=== PATIENT | male | born 1990 | race Caucasian/White ===

== ENCOUNTER 2017-05-02 09:29 | Emergency (ER) | payer SELFPAY ==
[2017-05-02] MEDS ORDERED: Benzocaine 20% Topical Spray UD MUCMEM ONE (10:05)
[2017-05-02] MEDS ORDERED: Lidocaine 2% Viscous Solution 15 ML Cup PO ONE (10:05)
--- NOTE | 2017-05-02 10:08 | EDM.PDOC ---
ED HPI GENERAL MEDICAL PROBLEM - General Chief Complaint: General Stated Complaint: TOOTH PAIN Time Seen by Provider: 05/02/17 10:05 Source of Information: Reports: Patient History Limitations: Reports: No Limitations - History of Present Illness INITIAL COMMENTS - FREE TEXT/NARRATIVE: HISTORY AND PHYSICAL: History of present illness: Patient is a 27-year-old male who presents to the emergency room with complaints of dental pain and facial swelling 2 days. He states he has a long- standing history of tobacoo use which he treats to his poor dental health. He states he was eating and he felt pain to his right posterior lower molar and had swelling. Has been using Tylenol and Motrin and has not found any relief. He states he is unable to get into a dentist "until I get the swelling down". He is here today requesting antibiotics and pain management. Review of systems: As per history of present illness and below otherwise all systems reviewed and negative. Past medical history: As per history of present illness and as reviewed below otherwise noncontributory. Surgical history: As per history of present illness and as reviewed below otherwise noncontributory. Social history: No reported history of drug or alcohol abuse. Family history: As per history of present illness and as reviewed below otherwise noncontributory. Physical exam: Gen.: Well-developed and well-nourished 27-year-old male. Alert and oriented. Nontoxic appearing and in no acute distress. HEENT: Atraumatic, normocephalic, pupils reactive, negative for conjunctival pallor or scleral icterus, mucous membranes moist, throat clear with no pillar shifting, neck supple, nontender, trachea midline. #30-32 appear decayed, gumline has erythema and mild swelling. Swelling is noted to the right lower jawline and does not extend into the neck. No drooling or trismus. Lungs: Clear to auscultation, breath sounds equal bilaterally, chest nontender. Heart: S1S2, regular, negative for clicks, rubs, or JVD. Abdomen: Soft, nondistended, nontender. Negative for masses or hepatosplenomegaly. Negative for costovertebral tenderness. Pelvis: Stable nontender. Genitourinary: Deferred. Rectal: Deferred. Extremities: Atraumatic, negative for cords or calf pain. Neurovascular unremarkable. Neuro: Awake, alert, oriented. Cranial nerves II through XII unremarkable. Cerebellum unremarkable. Motor and sensory unremarkable throughout. Exam nonfocal. Diagnostics: [] Therapeutics: Viscous lidocaine, Hurricaine spray Impression: Dental abscess Plan: 1. Please take your antibiotic as prescribed. Use your dental balls that have been given to you. Tramadol for night time use. Please use ibuprofen to help with the swelling for the next couple days. Take this medication with food. 2. Follow-up with your local dentist for definitive care. Return to the ED as needed and as discussed. Definitive disposition and diagnosis as appropriate pending reevaluation and review of above. Duration: Day(s): Location: Reports: Face Right Lower Oral/Mouth Pain Score (Numeric/FACES): 10 - Related Data Allergies Allergy/AdvReac Type Severity Reaction Status Date / Time No Known Allergies Allergy Verified 05/02/17 10:06 Home Meds: Home Meds . [No Known Home Meds] 03/27/14 [History] Past Medical History - Past Health History Medical/Surgical History: Denies Medical/Surgical History HEENT History: Reports: None Cardiovascular History: Reports: None Respiratory History: Reports: None Gastrointestinal History: Reports: None Genitourinary History: Reports: None Musculoskeletal History: Reports: None Neurological History: Reports: Head Trauma Psychiatric History: Reports: Anxiety Endocrine/Metabolic History: Reports: None Hematologic History: Reports: None Immunologic History: Reports: None Oncologic (Cancer) History: Reports: None Dermatologic History: Reports: None - Past Surgical History GI Surgical History: Reports: Hernia, Inguinal Social & Family History - Tobacco Use Smoking Status *Q: Current Every Day Smoker Years of Tobacco use: 5 Packs/Tins Daily: 0.5 - Alcohol Use Days Per Week of Alcohol Use: 0 Number of Drinks Per Day: 2 Total Drinks Per Week: 0 - Recreational Drug Use Recreational Drug Use: No ED ROS GENERAL - Review of Systems Review Of Systems: ROS reveals no pertinent complaints other than HPI. ED EXAM, GENERAL - Physical Exam Exam: See Below (See dictation) Course - Vital Signs Last Recorded V/S: Last Vital Signs Temp 98.7 F 05/02/17 10:03 Pulse 121 H 05/02/17 10:03 Resp 20 05/02/17 10:03 BP 131/81 05/02/17 10:03 Pulse Ox 98 05/02/17 10:03 - Orders/Labs/Meds Meds: Medications Discontinued Medications Generic Name Dose Route Start Last Admin Trade Name Rainer PRN Reason Stop Dose Admin Benzocaine 2 each 05/02/17 10:05 05/02/17 10:18 Hurricaine One 20% MUCMEM 05/02/17 10:06 2 each ONETIME ONE Administration Lidocaine HCl 15 ml 05/02/17 10:05 05/02/17 10:18 Xylocaine 2% Viscous PO 05/02/17 10:06 15 ml ONETIME ONE Administration Departure - Departure Time of Disposition: 10:35 Disposition: Home, Self-Care 01 Clinical Impression: Dental abscess - Discharge Information Referrals: PCP,None [Primary Care Provider] - Forms: ED Department Discharge Additional Instructions: My general discharge The following information is given to patients seen in the emergency department who are being discharged to home. This information is to outline your options for follow-up care. We provide all patients seen in our emergency department with a follow-up referral. The need for follow-up, as well as the timing and circumstances, are variable depending upon the specifics of your emergency department visit. If you don't have a primary care physician on staff, we will provide you with a referral. We always advise you to contact your personal physician following an emergency department visit to inform them of the circumstance of the visit and for follow-up with them and/or the need for any referrals to a consulting specialist. The emergency department will also refer you to a specialist when appropriate. This referral assures that you have the opportunity for follow-up care with a specialist. All of these measure are taken in an effort to provide you with optimal care, which includes your follow-up. Under all circumstances we always encourage you to contact your private physician who remains a resource for coordinating your care. When calling for follow-up care, please make the office aware that this follow-up is from your recent emergency room visit. If for any reason you are refused follow-up, please contact the [facility] Emergency Department at and asked to speak to the emergency department charge nurse. [facility] [address] [place] [id number] 1. Please stop all tobacco use. Take your antibiotic as prescribed. Use your dental balls that have been given to you. Tramadol for night time use. Please use ibuprofen to help with the swelling for the next couple days. Take this medication with food. 2. Follow-up with your local dentist for definitive care this week. Return to the ED as needed and as discussed.
[2017-05-02 11:14] VITALS: BP 130/78
== END 2017-05-02 10:44 | disposition home or self-care (01) ==
LOC: MW.ED 09:29
DX: K04.7 Periapical abscess without sinus (principal); F17.210 Nicotine dependence, cigarettes, uncomplicated
CPT/HCPCS: 99282; A9270

== ENCOUNTER 2017-05-07 12:23 | Emergency (ER) | payer SELFPAY ==
[2017-05-07] MEDS ORDERED: Benzocaine 20% Topical Spray UD MUCMEM ONE (12:37)
[2017-05-07] MEDS ORDERED: Lidocaine 2% Viscous Solution 15 ML Cup PO ONE (12:37)
--- NOTE | 2017-05-07 12:37 | EDM.PDOC ---
ED HPI GENERAL MEDICAL PROBLEM - General Chief Complaint: ENT Problem Stated Complaint: ORAL PAIN AND SWELLING Time Seen by Provider: 05/07/17 12:24 Source of Information: Reports: Patient History Limitations: Reports: No Limitations - History of Present Illness INITIAL COMMENTS - FREE TEXT/NARRATIVE: HISTORY AND PHYSICAL: History of present illness: Patient is a 27-year-old male who presents to the emergency room with dental pain. He was seen by myself on for the same complaint. At that time he was placed on amoxicillin and given tramadol for pain/discomfort. He states that he has been taking his medication regularly and has not improved. He feels that the swelling is the same and feels firm to touch. Denies any fever, chills, chest pain, shortness of breath, abdominal pain, nausea, vomiting or diarrhea. Review of systems: As per history of present illness and below otherwise all systems reviewed and negative. Past medical history: As per history of present illness and as reviewed below otherwise noncontributory. Surgical history: As per history of present illness and as reviewed below otherwise noncontributory. Social history: No reported history of drug or alcohol abuse. Family history: As per history of present illness and as reviewed below otherwise noncontributory. Physical exam: General: Well-developed and well-nourished 27-year-old male. Alert and oriented. Appears nontoxic and in no acute distress. HEENT: Atraumatic, normocephalic, pupils reactive, negative for conjunctival pallor or scleral icterus, mucous membranes moist, throat clear, neck supple, swelling noted to the right posterior molar with tenderness with palpation, neck is nontender, trachea midline. Drooling or trismus. No meningeal signs. Lungs: Clear to auscultation, breath sounds equal bilaterally, chest nontender. Heart: S1S2, regular rate and rhythm Abdomen: Soft, nondistended, nontender. Negative for masses or hepatosplenomegaly. Negative for costovertebral tenderness. Pelvis: Stable nontender. Genitourinary: Deferred. Rectal: Deferred. Extremities: Atraumatic, negative for cords or calf pain. Neurovascular unremarkable. Neuro: Awake, alert, oriented. Cranial nerves II through XII unremarkable. Cerebellum unremarkable. Motor and sensory unremarkable throughout. Exam nonfocal. Ears soft tissue swelling noted to the right lower jawline. Upon entering the room the patient is asleep on the chair and appears in no acute distress. I will give the patient some dental balls and a shot of Rocephin while he is here. Had him stop the amoxicillin and prescribed clindamycin every 6 hours 7 days. Formed him that he should ice the area and follow-up with a dentist. Diagnostics: [] Therapeutics: Rocephin Dental balls Impression: Dental abscess Plan: 1. Please stop the amoxicillin. Rocephin has been given to you here. Clindamycin has been prescribed to you. One tab every 6 hours x 7 days. 2. Dental balls have been offered to you. You may continue to do the tramadol as needed. PLEASE APPLY ICE TO THE SWOLLEN AREA. 3. For definitive care you do need to see a dentist. Return to the ED as needed and as discussed. Definitive disposition and diagnosis as appropriate pending reevaluation and review of above. Onset Date: 04/30/17 Duration: Day(s): Location: Reports: Face - Related Data Allergies Allergy/AdvReac Type Severity Reaction Status Date / Time No Known Allergies Allergy Verified 05/02/17 10:06 Home Meds: Home Meds . [No Known Home Meds] 03/27/14 [History] Past Medical History - Past Health History Medical/Surgical History: Denies Medical/Surgical History HEENT History: Reports: None Cardiovascular History: Reports: None Respiratory History: Reports: None Gastrointestinal History: Reports: None Genitourinary History: Reports: None Musculoskeletal History: Reports: None Neurological History: Reports: Head Trauma Psychiatric History: Reports: Anxiety Endocrine/Metabolic History: Reports: None Hematologic History: Reports: None Immunologic History: Reports: None Oncologic (Cancer) History: Reports: None Dermatologic History: Reports: None - Past Surgical History GI Surgical History: Reports: Hernia, Inguinal Social & Family History - Tobacco Use Smoking Status *Q: Current Every Day Smoker Years of Tobacco use: 5 Packs/Tins Daily: 0.5 - Caffeine Use Caffeine Use: Reports: Soda - Alcohol Use Days Per Week of Alcohol Use: 0 Number of Drinks Per Day: 2 Total Drinks Per Week: 0 - Recreational Drug Use Recreational Drug Use: No ED ROS ENT - Review of Systems Review Of Systems: ROS reveals no pertinent complaints other than HPI. ED EXAM, ENT - Physical Exam Exam: See Below (See dictation) Course - Vital Signs Last Recorded V/S: Last Vital Signs Temp 97.8 F 05/07/17 12:52 Pulse 94 05/07/17 12:52 Resp 18 05/07/17 12:52 BP 131/87 05/07/17 12:52 Pulse Ox 96 05/07/17 12:52 - Orders/Labs/Meds Meds: Medications Discontinued Medications Generic Name Dose Route Start Last Admin Trade Name Rainer PRN Reason Stop Dose Admin Benzocaine 2 each 05/07/17 12:37 Hurricaine One 20% MUCMEM 05/07/17 12:38 ONETIME ONE Lidocaine HCl 15 ml 05/07/17 12:37 Xylocaine 2% Viscous PO 05/07/17 12:38 ONETIME ONE Departure - Departure Time of Disposition: 13:11 Disposition: Home, Self-Care 01 Clinical Impression: Dental abscess - Discharge Information Referrals: PCP,None [Primary Care Provider] - Forms: ED Department Discharge Additional Instructions: My general discharge The following information is given to patients seen in the emergency department who are being discharged to home. This information is to outline your options for follow-up care. We provide all patients seen in our emergency department with a follow-up referral. The need for follow-up, as well as the timing and circumstances, are variable depending upon the specifics of your emergency department visit. If you don't have a primary care physician on staff, we will provide you with a referral. We always advise you to contact your personal physician following an emergency department visit to inform them of the circumstance of the visit and for follow-up with them and/or the need for any referrals to a consulting specialist. The emergency department will also refer you to a specialist when appropriate. This referral assures that you have the opportunity for follow-up care with a specialist. All of these measure are taken in an effort to provide you with optimal care, which includes your follow-up. Under all circumstances we always encourage you to contact your private physician who remains a resource for coordinating your care. When calling for follow-up care, please make the office aware that this follow-up is from your recent emergency room visit. If for any reason you are refused follow-up, please contact the [facility] Emergency Department at and asked to speak to the emergency department charge nurse. [facility] [address] [place] [id number] 1. Please stop the amoxicillin. Rocephin has been given to you here. Clindamycin has been prescribed to you. One tab every 6 hours x 7 days. 2. Dental balls have been offered to you. You may continue to do the tramadol as needed. PLEASE APPLY ICE TO THE SWOLLEN AREA. 3. For definitive care you do need to see a dentist. Return to the ED as needed and as discussed.
[2017-05-07] MEDS ORDERED: cefTRIAXone 1,000 MG in Lidocaine 1% 4 ML IM ONE (13:12)
[2017-05-07 14:00] VITALS: BP 135/90
== END 2017-05-07 13:54 | disposition home or self-care (01) ==
LOC: MW.ED 12:23
DX: K04.7 Periapical abscess without sinus (principal); F17.210 Nicotine dependence, cigarettes, uncomplicated
CPT/HCPCS: 96372; 99282; J0696; J2001